=== PATIENT | male | born 1990 | race African-American/Black ===

== ENCOUNTER 2023-11-02 15:52 | Inpatient (IN) | payer OTHER ==
[~2023-11-02] VITALS: Ht 182.9 cm; Wt 111.1 kg
[2023-11-02] MEDS ORDERED: LORazepam 2 MG/ML 1ML VIAL IV STA (16:07)
[2023-11-02] MEDS ORDERED: MORPHINE 4 MG/ML 1ML VIAL IV ONE (16:10)
[2023-11-02 17:14] LABS: HEMATOCRIT 41.9 % (42.0-52.0); MEAN CORPUSCULAR HEMOGLOBIN 30.1 pg (27.0-33.0); MEAN CORPUSCULAR HGB CONC 33.4 g/dl (32.0-36.5); MEAN CORPUSCULAR VOLUME 90.1 fl (80.0-96.0); PLATELET COUNT, AUTOMATED 248 10^3/uL (150-450); RED BLOOD COUNT 4.65 10^6/uL (4.30-6.10); WHITE BLOOD COUNT 7.1 10^3/uL (4.0-10.0)
[2023-11-02 17:31] LABS: BLOOD UREA NITROGEN 11 MG/DL (9-23); CALCIUM LEVEL 9.5 MG/DL (8.5-10.1); CARBON DIOXIDE LEVEL 28 MMOL/L (20-31); CHLORIDE LEVEL 106 MMOL/L (98-107); CREATININE FOR GFR 1.24 MG/DL (0.70-1.30); GLOMERULAR FILTRATION RATE > 60.0 (>60); GLUCOSE, FASTING 85 MG/DL (60-100); POTASSIUM SERUM 4.4 MMOL/L (3.5-5.1); SODIUM LEVEL 139 MMOL/L (136-145)
[2023-11-02] MEDS ORDERED: HOME MED LIST COMPLETE! XX SCH (17:35)
[2023-11-02] MEDS: KCL 10MEQ IN D5/0.45NS 1000ML 1,000 ML IV SCH (18:16)
[2023-11-03] VITALS (7 sets, daily range): BP systolic 110–164; BP diastolic 52–73; TEMP 97.4–99.8; O2SAT 91–99
[2023-11-03] MEDS: KCL 10MEQ IN D5/0.45NS 1000ML 1,000 ML IV SCH (01:30)
[2023-11-03] MEDS ORDERED: LR 1,000 ML IV SCH ×2 (05:45→12:00)
[2023-11-03 06:46] LABS: HEMATOCRIT 39.1 % (42.0-52.0); HEMOGLOBIN 12.9 g/dl (13.5-17.5); MEAN CORPUSCULAR HEMOGLOBIN 30.3 pg (27.0-33.0); MEAN CORPUSCULAR VOLUME 91.8 fl (80.0-96.0); PLATELET COUNT, AUTOMATED 215 10^3/uL (150-450); RED BLOOD COUNT 4.26 10^6/uL (4.30-6.10)
[2023-11-03 07:20] LABS: BLOOD UREA NITROGEN 12 MG/DL (9-23); CARBON DIOXIDE LEVEL 29 MMOL/L (20-31); CHLORIDE LEVEL 106 MMOL/L (98-107); CREATININE FOR GFR 1.13 MG/DL (0.70-1.30); GLOMERULAR FILTRATION RATE > 60.0 (>60); GLUCOSE, FASTING 75 MG/DL (60-100); POTASSIUM SERUM 3.8 MMOL/L (3.5-5.1); SODIUM LEVEL 142 MMOL/L (136-145)
[2023-11-03] MEDS ORDERED: ceFAZolin 2 GM/D5W 50 ML IV BAG As Ordered ONE (08:01)
[2023-11-03] MEDS ORDERED: fentaNYL 100 MCG/2 ML INJECTION As Ordered ONE (08:27)
[2023-11-03] MEDS ORDERED: propofoL 200 MG/20 ML VIAL As Ordered ONE (08:28)
[2023-11-03] MEDS ORDERED: MIDAZOLAM INJ 2MG/2ML VIAL As Ordered ONE (08:28)
[2023-11-03] MEDS ORDERED: LIDOCAINE 2% 100MG/5ML SDV (FOR ANES.) As Ordered ONE (08:28)
[2023-11-03] MEDS ORDERED: HYDROmorphone HCL 2MG/ML 1ML VIAL As Ordered ONE (09:05)
[2023-11-03] MEDS ORDERED: TRANEXAMIC ACID 100 MG/ML 10ML VIAL As Ordered ONE (09:20)
[2023-11-03] MEDS ORDERED: ACETAMINOPHEN 1000MG 100ML IV BAG As Ordered ONE (10:01)
[2023-11-03] MEDS ORDERED: KETOROLAC 60MG 2ML VIAL As Ordered ONE (10:02)
[2023-11-03] MEDS ORDERED: VANCOMYCIN 1000MG/20ML VIAL As Ordered ONE ×2 (10:08→10:33)
[2023-11-03] MEDS ORDERED: ONDANSETRON 4MG 2ML VIAL As Ordered ONE (11:26)
[2023-11-03] MEDS ORDERED: fentaNYL 100 MCG/2 ML INJECTION IV PRN (12:00)
[2023-11-03] MEDS ORDERED: ONDANSETRON 4MG 2ML VIAL IV PRN (12:00)
[2023-11-03] MEDS ORDERED: HYDROMORPHONE HCL 0.5 MG/ 0.5 ML SYRINGE IV PRN (12:00)
[2023-11-03] MEDS ORDERED: METOCLOPRAMIDE INJ 10MG/2ML VIAL IV PRN (12:00)
[2023-11-03] MEDS ORDERED: oxyCODONE 5MG TAB PO PRN (12:00)
[2023-11-03] MEDS ORDERED: PROMETHAZINE 25MG/ML 1ML VIAL IV PRN (12:00)
[2023-11-03] MEDS: ACETAMINOPHEN 500 MG TAB PO PRN (19:07)
[2023-11-03] MEDS ORDERED: PERCOCET 5MG/325MG TAB PO ONE (23:55)
[2023-11-04] MEDS: ACETAMINOPHEN 500 MG TAB PO PRN ×4 (02:12→20:07)
[2023-11-04 04:36] LABS: HEMATOCRIT 36.2 % (42.0-52.0); HEMOGLOBIN 12.1 g/dl (13.5-17.5); MEAN CORPUSCULAR HEMOGLOBIN 30.3 pg (27.0-33.0); MEAN CORPUSCULAR HGB CONC 33.4 g/dl (32.0-36.5); MEAN CORPUSCULAR VOLUME 90.5 fl (80.0-96.0); PLATELET COUNT, AUTOMATED 206 10^3/uL (150-450); WHITE BLOOD COUNT 5.7 10^3/uL (4.0-10.0)
[2023-11-04 05:04] LABS: BLOOD UREA NITROGEN 8 MG/DL (9-23); CALCIUM LEVEL 8.6 MG/DL (8.5-10.1); CARBON DIOXIDE LEVEL 27 MMOL/L (20-31); CHLORIDE LEVEL 105 MMOL/L (98-107); CREATININE FOR GFR 1.02 MG/DL (0.70-1.30); GLOMERULAR FILTRATION RATE > 60.0 (>60); GLUCOSE, FASTING 139 MG/DL (60-100); POTASSIUM SERUM 3.8 MMOL/L (3.5-5.1); SODIUM LEVEL 138 MMOL/L (136-145)
[2023-11-04 07:31] VITALS: BP 145/83; TEMP 97.8; O2SAT 94
[2023-11-04] MEDS ORDERED: KETOROLAC 30 MG/ML 1ML VIAL IV ONE (08:30)
[2023-11-04] MEDS ORDERED: INFLUENZA QUADRIVALENT PF VACCINE 0.5ML SYRINGE IM.IMMUN ONE (09:00)
[2023-11-04 15:20] VITALS: BP 134/59; TEMP 97.9; O2SAT 99
[2023-11-04] MEDS: KETOROLAC TROMETHAMINE 10 MG TAB PO PRN (16:34)
[2023-11-04 19:40] VITALS: BP 122/70; TEMP 97.2; O2SAT 95
[2023-11-05 03:20] VITALS: BP 119/57; TEMP 98.1; O2SAT 97
[2023-11-05 05:43] LABS: HEMATOCRIT 35.5 % (42.0-52.0); HEMOGLOBIN 11.5 g/dl (13.5-17.5); MEAN CORPUSCULAR HEMOGLOBIN 29.6 pg (27.0-33.0); MEAN CORPUSCULAR HGB CONC 32.4 g/dl (32.0-36.5); MEAN CORPUSCULAR VOLUME 91.5 fl (80.0-96.0); PLATELET COUNT, AUTOMATED 192 10^3/uL (150-450); RED BLOOD COUNT 3.88 10^6/uL (4.30-6.10); WHITE BLOOD COUNT 5.8 10^3/uL (4.0-10.0)
[2023-11-05] MEDS: KETOROLAC TROMETHAMINE 10 MG TAB PO PRN ×2 (05:51→11:57)
[2023-11-05 06:05] LABS: BLOOD UREA NITROGEN 8 MG/DL (9-23); CALCIUM LEVEL 8.6 MG/DL (8.5-10.1); CARBON DIOXIDE LEVEL 27 MMOL/L (20-31); CHLORIDE LEVEL 106 MMOL/L (98-107); CREATININE FOR GFR 1.02 MG/DL (0.70-1.30); GLOMERULAR FILTRATION RATE > 60.0 (>60); GLUCOSE, FASTING 96 MG/DL (60-100); POTASSIUM SERUM 4.2 MMOL/L (3.5-5.1); SODIUM LEVEL 138 MMOL/L (136-145)
[2023-11-05 07:28] VITALS: BP 124/61; TEMP 98; O2SAT 98
[2023-11-05] MEDS ORDERED: ASPIRIN 325 MG TAB PO SCH (09:00)
[2023-11-05] MEDS ORDERED: OXYC-517 PO (10:33)
[2023-11-05] MEDS ORDERED: ACET-683 PO (10:33)
[2023-11-05] MEDS ORDERED: ASPI-1 PO (10:33)
[2023-11-05] MEDS ORDERED: IBUP-1114 PO (10:33)
[2023-11-06 19:35] VITALS: BP 101/57; TEMP 99; O2SAT 95
== END 2023-11-05 13:56 | disposition home or self-care (01) | DRG 502 ==
LOC: M ED 15:52 → M ED INP 17:24 → M PCU 11-03 01:26
PROVIDERS: ADMIT Family Medicine; ATTEND Student in an Organized Health Care Education/Training Program
PROC: 0LQR0ZZ Repair Left Knee Tendon, Open Approach (ICD-10-PCS; 2023-11-03)
PROC: 0LQQ0ZZ Repair Right Knee Tendon, Open Approach (ICD-10-PCS; principal; 2023-11-03 08:00)
DX: S86.811A Strain of other muscle(s) and tendon(s) at lower leg level, right leg, initial encounter (principal); S86.812A Strain of other muscle(s) and tendon(s) at lower leg level, left leg, initial encounter; X50.9XXA Other and unspecified overexertion or strenuous movements or postures, initial encounter; M62.838 Other muscle spasm

== ENCOUNTER 2024-11-03 13:42 | Inpatient (IN) | payer OTHER ==
[~2024-11-03] VITALS: Ht 182.9 cm; Wt 106.6 kg
[~2024-11-03 13:42] MED LIST: ACET-683 PO; ASPI-1 PO; IBUP-1114 PO; OXYC-517 PO
[2024-11-03 14:23] LABS: BASO % 0.4 % (0.0-1.0); EOS # 0.1 10^3/uL (0.0-0.5); EOS % 2.1 % (0.0-3.0); HEMATOCRIT 42.8 % (42.0-52.0); HEMOGLOBIN 14.3 g/dl (13.5-17.5); LYMPH % 29.8 % (24.0-44.0); MEAN CORPUSCULAR HEMOGLOBIN 29.8 pg (27.0-33.0); MEAN CORPUSCULAR HGB CONC 33.4 g/dl (32.0-36.5); MEAN CORPUSCULAR VOLUME 89.2 fl (80.0-96.0); MONO # 0.3 10^3/uL (0.0-0.8); MONO % 4.8 % (2.0-8.0); NEUTROPHILS # 4.2 10^3/uL (1.5-8.5); NEUTROPHILS % 62.8 % (36.0-66.0); PLATELET COUNT, AUTOMATED 190 10^3/uL (150-450); WHITE BLOOD COUNT 6.7 10^3/uL (4.0-10.0)
[2024-11-03 14:36] LABS: LIPASE 34 U/L (12-53)
[2024-11-03 14:38] LABS: ALBUMIN 3.7 G/DL (3.2-5.2); ALKALINE PHOSPHATASE 61 U/L (40-129); ALT/SGPT 34 U/L (7.0-40); AST/SGOT 33 U/L (<34); BILIRUBIN,DIRECT 0.2 MG/DL (<0.4); BILIRUBIN,TOTAL 0.5 MG/DL (0.3-1.2); BLOOD UREA NITROGEN 16 MG/DL (9-23); CALCIUM LEVEL 10.2 MG/DL (8.5-10.1); CARBON DIOXIDE LEVEL 26 MMOL/L (20-31); CHLORIDE LEVEL 107 MMOL/L (98-107); CREATININE FOR GFR 1.09 MG/DL (0.70-1.30); GLOMERULAR FILTRATION RATE > 60.0 (>60); GLUCOSE, FASTING 102 MG/DL (60-100); POTASSIUM SERUM 4.2 MMOL/L (3.5-5.1); SODIUM LEVEL 144 MMOL/L (136-145); TOTAL PROTEIN 7.7 G/DL (5.7-8.2)
[2024-11-03 14:41] LABS: THYROID STIMULATING HORMONE 4.034 uIU/ML (0.55-4.78)
[2024-11-03] MEDS ORDERED: ISOVUE-370 76% 100ML VIAL As Ordered ONE (14:54)
[2024-11-03 15:34] LABS: CPK CREATINE PHOSPHOKINASE 157 U/L (46-171)
[2024-11-03] MEDS ORDERED: HEPARIN DRIP 25,000 UNITS in IV 1 EA IV SCH (16:05)
[2024-11-03] MEDS ORDERED: HOME MED LIST COMPLETE! XX SCH (16:10)
[2024-11-03] MEDS ORDERED: KETOROLAC 30 MG/ML 1ML VIAL IV PRN (16:55)
[2024-11-03] MEDS: HEPARIN DRIP 25,000 UNITS in IV 1 EA IV SCH (17:32)
[2024-11-03] MEDS: HEPARIN SOD (PORCINE) 5000UNITS/ML 1ML VIAL/SYRINGE IV ONE (17:33)
[2024-11-03 17:34] LABS: VENOUS BASE EXCESS -3.1 (-2.0-2.0); VENOUS HCO3 23.8 MMOL/L (23.0-27.0); VENOUS O2 SATURATION 35.8 % (60.0-80.0); VENOUS PARTIAL PRESSURE CO2 49.2 mmHg (38.0-50.0); VENOUS PH 7.303 UNITS (7.330-7.430); VENOUS STANDARD HCO3 20.3 MMOL/L; VENOUS TOTAL CO2 25.3 MMOL/L (24.0-28.0)
[2024-11-03 17:45] LABS: PARTIAL THROMBOPLASTIN TIME 27.6 SECONDS (24.8-34.2); PROTHROMBIN TIME 13.5 SECONDS (12.5-14.5)
[2024-11-03] MEDS: PANTOPRAZOLE 40MG VIAL IV SCH (18:45)
[2024-11-03 21:00] LABS: AMPHETAMINES LEVEL URINE NEGATIVE (NEGATIVE); BARBITURATES URINE NEGATIVE (NEGATIVE); BENZODIAZEPINES URINE NEGATIVE (NEGATIVE); CANNABINOIDS URINE NEGATIVE (NEGATIVE); COCAINE METABOLITE URINE NEGATIVE (NEGATIVE); METHADONE URINE NEGATIVE (NEGATIVE); OPIATES URINE NEGATIVE (NEGATIVE); PHENCYCLIDINE URINE NEGATIVE (NEGATIVE)
[2024-11-04 06:48] LABS: HEMATOCRIT 42.6 % (42.0-52.0); HEMOGLOBIN 14.4 g/dl (13.5-17.5); MEAN CORPUSCULAR HEMOGLOBIN 29.6 pg (27.0-33.0); MEAN CORPUSCULAR HGB CONC 33.8 g/dl (32.0-36.5); MEAN CORPUSCULAR VOLUME 87.5 fl (80.0-96.0); PLATELET COUNT, AUTOMATED 197 10^3/uL (150-450); RED BLOOD COUNT 4.87 10^6/uL (4.30-6.10)
[2024-11-04] MEDS ORDERED: LIDOCAINE 1% MDV 20ML VIAL As Ordered ONE (07:08)
[2024-11-04] MEDS ORDERED: ISOVUE-300 61% 100ML VIAL As Ordered ONE (07:08)
[2024-11-04 07:11] LABS: ALBUMIN 3.5 G/DL (3.2-5.2); ALKALINE PHOSPHATASE 53 U/L (40-129); ALT/SGPT 26 U/L (7.0-40); AST/SGOT 21 U/L (<34); BILIRUBIN,TOTAL 0.5 MG/DL (0.3-1.2); BLOOD UREA NITROGEN 11 MG/DL (9-23); CALCIUM LEVEL 9.5 MG/DL (8.5-10.1); CARBON DIOXIDE LEVEL 26 MMOL/L (20-31); CHLORIDE LEVEL 106 MMOL/L (98-107); CREATININE FOR GFR 1.09 MG/DL (0.70-1.30); GLOMERULAR FILTRATION RATE > 60.0 (>60); GLUCOSE, FASTING 102 MG/DL (60-100); POTASSIUM SERUM 4.3 MMOL/L (3.5-5.1); SODIUM LEVEL 141 MMOL/L (136-145); TOTAL PROTEIN 7.5 G/DL (5.7-8.2)
[2024-11-04 07:18] LABS: CK-MB VALUE MASS < 1.0 NG/ML (<3.6)
[2024-11-04 07:19] LABS: CPK CREATINE PHOSPHOKINASE 130 U/L (46-171); MB/CK RELATIVE INDEX 0.76 (< OR =4)
[2024-11-04] MEDS ORDERED: NS (Normal Saline) 0.9% 1,000 ML IV SCH (07:20)
[2024-11-04] MEDS ORDERED: HEPARIN 25,000 UNITS/250 ML D5W BAG (100 UNITS/ML) As Ordered ONE (07:42)
[2024-11-04] MEDS ORDERED: fentaNYL 100 MCG/2 ML INJECTION As Ordered ONE (07:42)
[2024-11-04] MEDS ORDERED: MIDAZOLAM INJ 2MG/2ML VIAL As Ordered ONE (07:42)
[2024-11-04] MEDS ORDERED: HEPARIN 1,000UNITS/ML 10ML VIAL (FOR RADIOLOGY & DIALYSIS ONLY) As Ordered ONE (08:42)
[2024-11-04 12:48] LABS: INR 1.18; PROTHROMBIN TIME 15.3 SECONDS (12.5-14.5)
[2024-11-04 13:23] LABS: PARTIAL THROMBOPLASTIN TIME 234.5 SECONDS (24.8-34.2)
[2024-11-04 13:35] VITALS: BP 134/78; TEMP 97.7; O2SAT 97
[2024-11-04 15:12] LABS: CK-MB VALUE MASS 1.2 NG/ML (<3.6)
[2024-11-04 15:18] LABS: MB/CK RELATIVE INDEX 0.78 (< OR =4)
[2024-11-04 16:45] VITALS: BP 119/72; TEMP 98; O2SAT 96
[2024-11-04 19:27] VITALS: BP 133/83; TEMP 98; O2SAT 96
[2024-11-04 23:44] VITALS: BP 138/72; TEMP 98.2; O2SAT 97
[2024-11-04 23:52] LABS: CK-MB VALUE MASS < 1.0 NG/ML (<3.6)
[2024-11-05 00:20] LABS: CPK CREATINE PHOSPHOKINASE 105 U/L (46-171); MB/CK RELATIVE INDEX 0.95 (< OR =4)
[2024-11-05 03:50] VITALS: BP 127/71; TEMP 97.5; O2SAT 98
[2024-11-05 06:40] LABS: HEMATOCRIT 37.4 % (42.0-52.0); HEMOGLOBIN 12.6 g/dl (13.5-17.5); MEAN CORPUSCULAR HEMOGLOBIN 29.8 pg (27.0-33.0); MEAN CORPUSCULAR HGB CONC 33.7 g/dl (32.0-36.5); MEAN CORPUSCULAR VOLUME 88.4 fl (80.0-96.0); PLATELET COUNT, AUTOMATED 199 10^3/uL (150-450); RED BLOOD COUNT 4.23 10^6/uL (4.30-6.10); WHITE BLOOD COUNT 4.5 10^3/uL (4.0-10.0)
[2024-11-05 07:01] LABS: CK-MB VALUE MASS < 1.0 NG/ML (<3.6)
[2024-11-05 07:02] LABS: CPK CREATINE PHOSPHOKINASE 92 U/L (46-171); MB/CK RELATIVE INDEX 1.08 (< OR =4)
[2024-11-05 07:03] LABS: INR 1.08; PARTIAL THROMBOPLASTIN TIME 70.4 SECONDS (24.8-34.2); PROTHROMBIN TIME 14.3 SECONDS (12.5-14.5)
[2024-11-05 07:04] LABS: ALBUMIN 3.1 G/DL (3.2-5.2); ALKALINE PHOSPHATASE 48 U/L (40-129); ALT/SGPT 33 U/L (7.0-40); AST/SGOT 25 U/L (<34); BILIRUBIN,TOTAL 0.3 MG/DL (0.3-1.2); BLOOD UREA NITROGEN 10 MG/DL (9-23); CALCIUM LEVEL 9.1 MG/DL (8.5-10.1); CARBON DIOXIDE LEVEL 26 MMOL/L (20-31); CHLORIDE LEVEL 108 MMOL/L (98-107); CREATININE FOR GFR 0.99 MG/DL (0.70-1.30); GLOMERULAR FILTRATION RATE > 60.0 (>60); GLUCOSE, FASTING 101 MG/DL (60-100); POTASSIUM SERUM 4.1 MMOL/L (3.5-5.1); SODIUM LEVEL 142 MMOL/L (136-145); TOTAL PROTEIN 6.5 G/DL (5.7-8.2)
[2024-11-05 07:53] VITALS: BP 119/64; TEMP 97.5; O2SAT 96
[2024-11-05 09:34] LABS: DRVV SCREEN 30.8 SECONDS
[2024-11-05 09:36] LABS: PTT LUPUS TYPE ANTICOAG SCREEN 0.73 (0-1.20)
[2024-11-05] MEDS: APIXABAN 5 MG TAB (ELIQUIS) PO SCH (11:00)
[2024-11-05 12:00] VITALS: BP 152/79; TEMP 96.7; O2SAT 98
[2024-11-05 13:49] LABS: CK-MB VALUE MASS < 1.0 NG/ML (<3.6)
[2024-11-05 13:50] LABS: CPK CREATINE PHOSPHOKINASE 123 U/L (46-171); MB/CK RELATIVE INDEX 0.81 (< OR =4)
[2024-11-05 16:00] VITALS: BP 131/76; TEMP 98.3; O2SAT 94
[2024-11-05] MEDS ORDERED: ELIQ5TAB PO (16:42)
[2024-11-05 19:34] VITALS: BP 135/79; TEMP 98.3; O2SAT 98
[2024-11-05 21:27] LABS: CK-MB VALUE MASS < 1.0 NG/ML (<3.6)
[2024-11-05 21:28] LABS: CPK CREATINE PHOSPHOKINASE 114 U/L (46-171); MB/CK RELATIVE INDEX 0.87 (< OR =4)
[2024-11-05 23:53] VITALS: BP 139/74; TEMP 98.4; O2SAT 99
[2024-11-06 00:07] LABS: CARDIOLIPIN IGA ANTIBODY < 2.0 APL-U/mL (<20.0); CARDIOLIPIN IGG ANTIBODY < 2.0 GPL-U/mL (<20.0); CARDIOLIPIN IGM ANTIBODY < 2.0 MPL-U/mL (<20.0)
[2024-11-06 03:57] VITALS: BP 129/63; TEMP 97.2; O2SAT 98
[2024-11-06 06:06] LABS: HEMATOCRIT 38.3 % (42.0-52.0); HEMOGLOBIN 12.8 g/dl (13.5-17.5); MEAN CORPUSCULAR HEMOGLOBIN 29.8 pg (27.0-33.0); MEAN CORPUSCULAR HGB CONC 33.4 g/dl (32.0-36.5); MEAN CORPUSCULAR VOLUME 89.3 fl (80.0-96.0); PLATELET COUNT, AUTOMATED 223 10^3/uL (150-450); RED BLOOD COUNT 4.29 10^6/uL (4.30-6.10); WHITE BLOOD COUNT 4.3 10^3/uL (4.0-10.0)
[2024-11-06 06:21] LABS: CK-MB VALUE MASS < 1.0 NG/ML (<3.6)
[2024-11-06 06:23] LABS: ALBUMIN 3.4 G/DL (3.2-5.2); ALKALINE PHOSPHATASE 49 U/L (40-129); ALT/SGPT 43 U/L (7.0-40); AST/SGOT 25 U/L (<34); BILIRUBIN,TOTAL 0.4 MG/DL (0.3-1.2); BLOOD UREA NITROGEN 7 MG/DL (9-23); CARBON DIOXIDE LEVEL 26 MMOL/L (20-31); CHLORIDE LEVEL 108 MMOL/L (98-107); CPK CREATINE PHOSPHOKINASE 98 U/L (46-171); GLOMERULAR FILTRATION RATE > 60.0 (>60); GLUCOSE, FASTING 96 MG/DL (60-100); MB/CK RELATIVE INDEX 1.02 (< OR =4); POTASSIUM SERUM 4.1 MMOL/L (3.5-5.1); SODIUM LEVEL 140 MMOL/L (136-145); TOTAL PROTEIN 6.6 G/DL (5.7-8.2)
[2024-11-06 08:32] VITALS: BP 139/71; TEMP 98.4; O2SAT 98
[2024-11-08 01:53] LABS: PROTEIN C FUNCTIONAL ACTIVITY 111 % normal (70-180); PROTEIN S FUNCTIONAL ACTIVITY 104 % normal (70-150)
[2024-11-08 19:07] LABS: PHOSPHOLIPIDS LEVEL 178 mg/dL (151-264)
[2024-11-08 21:28] LABS: ANTI THROMBIN 3 ANTIGEN IMMUNO 116 % normal (80-120); ANTI THROMBIN 3 FUNCT ACTIVITY 123 % normal (80-135)
[2024-11-10 13:43] LABS: FACTOR II PROTHROMBIN GENE AN NEGATIVE
[2024-11-10 14:37] LABS: FACTOR V LEIDEN FOR MEDINET NEGATIVE
== END 2024-11-06 11:59 | disposition home or self-care (01) | DRG 164 ==
LOC: M ED 13:42 → EDBD 13:42 → M ED INP 16:16 → M PCU 11-04 13:21
PROVIDERS: ADMIT Internal Medicine; ATTEND Internal Medicine
PROC: 06CM3ZZ Extirpation of Matter from Right Femoral Vein, Percutaneous Approach (ICD-10-PCS; 2024-11-04)
PROC: 02C Heart and Great Vessels, Extirpation (ICD-10-PCS; principal; 2024-11-04 08:00)
DX: I26.99 Other pulmonary embolism without acute cor pulmonale (principal); I82.411 Acute embolism and thrombosis of right femoral vein; Q24.5 Malformation of coronary vessels; F17.200 Nicotine dependence, unspecified, uncomplicated; E83.52 Hypercalcemia; R94.31 Abnormal electrocardiogram [ECG] [EKG]; I82.461 Acute embolism and thrombosis of right calf muscular vein

== ENCOUNTER → 2024-12-16 | Outpatient (POV) | payer OTHER ==
[~2024-12-16] MED LIST changes: +ELIQ5TAB PO
== END ==
LOC: M IRPOV 16:06
PROVIDERS: ATTEND Radiology Diagnostic Radiology
DX: Z48.812 Encounter for surgical aftercare following surgery on the circulatory system (principal); Z79.01 Long term (current) use of anticoagulants; Z86.711 Personal history of pulmonary embolism; Z86.718 Personal history of other venous thrombosis and embolism; Z87.898 Personal history of other specified conditions

== ENCOUNTER → 2025-07-21 | Outpatient (CLI) | payer OTHER ==
[~2025-07-21] MED LIST changes: +ISOVUE-370 76% 100 ML VIAL As Ordered ONE
== END ==
LOC: M RAD 14:30
PROVIDERS: ATTEND Student in an Organized Health Care Education/Training Program
DX: Z86.711 Personal history of pulmonary embolism (principal)
CPT/HCPCS: 74177; Q9967